=== PATIENT | female | born 1960 | race Caucasian/White ===

== ENCOUNTER 2017-08-31 04:48 | Inpatient (IN) | payer OTHER ==
[2017-08-31] MEDS: ONDANSETRON 4 MG INJ IV (07:01)
[2017-08-31] MEDS: METHYLPREDNISOLONE 125 MG INJ IV (07:01)
[2017-08-31] MEDS: SOD CHLORIDE 0.9% 1,000 ML IV ×2 (07:02→09:00)
[2017-08-31] MEDS: HYDROmorphONE 1 MG/ML SYG IV (07:02)
[2017-08-31 07:24] LABS: ADD MAN DIFF? NO
[2017-08-31 07:27] LABS: BASOPHIL # 0.1 10^3/ul (0.0-0.1); BASOPHILS % 0.8 % (0.0-2.0); EOSINOPHILS # 0.4 10^3/ul (0.0-0.5); EOSINOPHILS % 3.6 % (0.0-7.0); HEMATOCRIT 41.3 % (37.0-47.0); HEMOGLOBIN 13.7 g/dl (12.0-16.0); LYMPHOCYTES # 3.4 10^3/ul (0.8-2.9); LYMPHOCYTES % 32.1 % (15.0-51.0); MEAN CORPUSCULAR HEMOGLOBIN 29.1 pg (29.0-33.0); MEAN CORPUSCULAR HGB CONC 33.2 g/dl (32.0-37.0); MEAN CORPUSCULAR VOLUME 87.9 fl (82.0-101.0); MEAN PLATELET VOLUME 11.5 fl (7.4-10.4); MONOCYTE # 0.8 10^3/ul (0.3-0.9); MONOCYTES % 7.5 % (0.0-11.0); NEUTROPHIL # 5.9 10^3/ul (1.6-7.5); NEUTROPHILS % 55.7 % (39.0-77.0); PLATELET COUNT 270 10^3/UL (140-415); RED CELL DISTRIBUTION WIDTH 14.6 % (11.5-14.5)
[2017-08-31 07:27] LABS: WHITE BLOOD COUNT 10.6 10^3/ul (4.8-10.8)
[2017-08-31 07:29] LABS: ADD UMIC NO; UR ASCORBIC ACID NEGATIVE (NEGATIVE); UR BILIRUBIN (Dip) NEGATIVE (NEGATIVE); UR BLOOD (Dip) NEGATIVE (NEGATIVE); UR CLARITY CLEAR (CLEAR); UR COLOR STRAW (YELLOW); UR GLUCOSE (Dip) NEGATIVE (NEGATIVE); UR KETONES (Dip) NEGATIVE (NEGATIVE); UR LEUKOCYTE ESTERASE (Dip) NEGATIVE Leu/ul (NEGATIVE); UR NITRITE (Dip) NEGATIVE (NEGATIVE); UR SPECIFIC GRAVITY (Dip) 1.006 (1.003-1.030); UR TOTAL PROTEIN (Dip) NEGATIVE (NEGATIVE); UR UROBILINOGEN (Dip) NEGATIVE (NEGATIVE)
[2017-08-31 07:47] LABS: ALANINE AMINOTRANSFERASE 25 IU/L (13-69); ALBUMIN 4.3 g/dl (3.3-4.9); ALBUMIN/GLOBULIN RATIO 1.38; ALKALINE PHOSPHATASE 51 IU/L (42-121); ANION GAP 16 (8-16); ASPARTATE AMINO TRANSFERASE 25 IU/L (15-46); BILIRUBIN,INDIRECT 0.3 mg/dl (0-1.1); BILIRUBIN,TOTAL 0.3 mg/dl (0.2-1.3); BLOOD UREA NITROGEN 12 mg/dl (7-20); CALCIUM 9.2 mg/dl (8.4-10.2); CARBON DIOXIDE 28 mmol/L (21-31); CHLORIDE 105 mmol/L (97-110); CREATININE 0.64 mg/dl (0.44-1.00); GLUCOSE 107 mg/dl (70-220); POTASSIUM 3.8 mmol/L (3.5-5.1); SODIUM 145 mmol/L (135-144); TOTAL PROTEIN 7.4 g/dl (6.1-8.1)
[2017-08-31] MEDS: ASPIRIN 325 MG TAB PO (08:58)
[2017-08-31] MEDS: CEFTRIAXONE 1 GM/50 ML (PMX) 50 ML IVPB (08:58)
[2017-08-31] MEDS ORDERED: ONDANSETRON 4 MG INJ IV (09:00)
[2017-08-31] MEDS ORDERED: ACETAMINOPHEN 325 MG TAB PO ×2 (09:00→10:30)
[2017-08-31] MEDS: AZITHROMYCIN 500MG/NS (PMX) 250 ML IV (09:22)
[2017-08-31] MEDS ORDERED: NITROGLYCERIN (SL) 0.4 MG TAB SL (10:30)
[2017-08-31] MEDS ORDERED: NACL 0.9% 3 ML SYG IV (10:30)
[2017-08-31] MEDS ORDERED: METOCLOPRAMIDE 10 MG INJ IV (10:30)
[2017-08-31 11:34] LABS: CREATINE KINASE 165 IU/L (23-200)
[2017-08-31 11:46] LABS: CK INDEX 0.6; CK-MB 1.04 ng/ml (0.0-2.4)
[2017-08-31 12:18] LABS: TROPONIN-I < 0.012 ng/ml (0.000-0.120)
[2017-08-31] MEDS: OXYCODONE/ACETAMINOPHEN (5/325) TAB PO ×2 (12:24→18:33)
[2017-08-31] MEDS: traMADol 50 MG TAB PO ×2 (13:21→20:35)
[2017-08-31] MEDS: CELECOXIB 100 MG CAP PO ×2 (13:21→20:34)
[2017-08-31 17:05] LABS: CREATINE KINASE 145 IU/L (23-200)
[2017-08-31 17:18] LABS: CK INDEX 0.6
[2017-08-31 17:24] LABS: TROPONIN-I < 0.012 ng/ml (0.000-0.120)
[2017-08-31] MEDS: ATORVASTATIN 80 MG TAB PO (20:35)
[2017-09-01 05:22] LABS: ADD MAN DIFF? NO
[2017-09-01 05:37] LABS: BASOPHILS % 0.1 % (0.0-2.0); HEMATOCRIT 37.7 % (37.0-47.0); HEMOGLOBIN 12.8 g/dl (12.0-16.0); LYMPHOCYTES # 1.5 10^3/ul (0.8-2.9); MEAN CORPUSCULAR HEMOGLOBIN 29.7 pg (29.0-33.0); MEAN CORPUSCULAR VOLUME 87.5 fl (82.0-101.0); MONOCYTE # 0.5 10^3/ul (0.3-0.9); MONOCYTES % 3.1 % (0.0-11.0); NEUTROPHIL # 14.8 10^3/ul (1.6-7.5); NEUTROPHILS % 87.2 % (39.0-77.0); PLATELET COUNT 265 10^3/UL (140-415); RED BLOOD COUNT 4.31 10^6/ul (4.20-5.40); RED CELL DISTRIBUTION WIDTH 14.6 % (11.5-14.5)
[2017-09-01 05:43] LABS: CHOL/HDL RATIO 2.6 RATIO; HDL CHOLESTEROL 49 mg/dl (35-98); LDL CHOLESTEROL,CALCULATED 72 mg/dl; TRIGLYCERIDES 55 mg/dl (0-149)
[2017-09-01 05:43] LABS: CHOLESTEROL 132 mg/dl (100-200)
[2017-09-01 06:01] LABS: ALANINE AMINOTRANSFERASE 28 IU/L (13-69); ALBUMIN 3.8 g/dl (3.3-4.9); ALBUMIN/GLOBULIN RATIO 1.31; ALKALINE PHOSPHATASE 44 IU/L (42-121); ANION GAP 14 (8-16); ASPARTATE AMINO TRANSFERASE 20 IU/L (15-46); BILIRUBIN,INDIRECT 0.2 mg/dl (0-1.1); BILIRUBIN,TOTAL 0.2 mg/dl (0.2-1.3); BLOOD UREA NITROGEN 11 mg/dl (7-20); CARBON DIOXIDE 27 mmol/L (21-31); CHLORIDE 107 mmol/L (97-110); CREATININE 0.56 mg/dl (0.44-1.00); GLUCOSE 129 mg/dl (70-220); PHOSPHORUS 3.7 mg/dl (2.5-4.9); POTASSIUM 4.5 mmol/L (3.5-5.1); SODIUM 143 mmol/L (135-144); TOTAL PROTEIN 6.7 g/dl (6.1-8.1)
[2017-09-01 08:02] LABS: HEMOGLOBIN A1C 6.1 % (0-5.9)
[2017-09-01] MEDS: CELECOXIB 100 MG CAP PO ×2 (08:33→20:24)
[2017-09-01] MEDS: ASPIRIN 81 MG TAB PO (08:33)
[2017-09-01] MEDS: traMADol 50 MG TAB PO ×3 (08:34→20:24)
[2017-09-01] MEDS: AMLODIPINE 10 MG TAB PO (08:34)
[2017-09-01] MEDS: LOSARTAN 50 MG TAB PO (08:35)
[2017-09-01] MEDS: ENOXAPARIN 40 MG/0.4 ML SYG SC (08:36)
[2017-09-01] MEDS: SOD CHLORIDE 0.9% 100 ML (12:41)
[2017-09-01] MEDS: IOHEXOL 100 ML (12:41)
[2017-09-01] MEDS: OXYCODONE/ACETAMINOPHEN (5/325) TAB PO (18:46)
[2017-09-01] MEDS: ATORVASTATIN 80 MG TAB PO (20:24)
[2017-09-02] MEDS: ASPIRIN 81 MG TAB PO (08:47)
[2017-09-02] MEDS: CELECOXIB 100 MG CAP PO ×2 (08:47→21:50)
[2017-09-02] MEDS: LOSARTAN 50 MG TAB PO (08:48)
[2017-09-02] MEDS: traMADol 50 MG TAB PO ×3 (08:48→21:50)
[2017-09-02] MEDS: AMLODIPINE 10 MG TAB PO (08:48)
[2017-09-02] MEDS: ENOXAPARIN 40 MG/0.4 ML SYG SC (08:53)
[2017-09-02] MEDS: OXYCODONE/ACETAMINOPHEN (5/325) TAB PO (19:32)
[2017-09-02] MEDS: ATORVASTATIN 80 MG TAB PO (21:49)
[2017-09-02] MEDS: DEXAMETHASONE 1 MG TAB PO (23:54)
[2017-09-03] MEDS: OXYCODONE/ACETAMINOPHEN (5/325) TAB PO (04:13)
[2017-09-03] MEDS: LEVOTHYROXINE 125 MCG TAB PO (06:38)
[2017-09-03] MEDS: ASPIRIN 81 MG TAB PO (08:21)
[2017-09-03] MEDS: AMLODIPINE 10 MG TAB PO (08:22)
[2017-09-03] MEDS: CELECOXIB 100 MG CAP PO (08:22)
[2017-09-03] MEDS: traMADol 50 MG TAB PO (08:22)
[2017-09-03] MEDS: LOSARTAN 50 MG TAB PO (08:22)
[2017-09-03] MEDS: ENOXAPARIN 40 MG/0.4 ML SYG SC (08:26)
== END 2017-09-03 12:55 | disposition home or self-care (01) | DRG 69 ==
LOC: TEL 09-01 22:30 → FTE 04:48 → MS3 09:01
DX: G45.9 Transient cerebral ischemic attack, unspecified (principal); R47.1 Dysarthria and anarthria; I10 Essential (primary) hypertension; F17.210 Nicotine dependence, cigarettes, uncomplicated; E78.00 Pure hypercholesterolemia, unspecified; M51.26 Other intervertebral disc displacement, lumbar region; R73.02 Impaired glucose tolerance (oral); R73.03 Prediabetes; G89.29 Other chronic pain; D35.02 Benign neoplasm of left adrenal gland; Z85.850 Personal history of malignant neoplasm of thyroid; Z86.73 Personal history of transient ischemic attack (TIA), and cerebral infarction without residual deficits; Z86.711 Personal history of pulmonary embolism
CPT/HCPCS: 36415; 70450; 70496; 70498; 70551; 71045; 74176; 76536; 80053; 80061; 81003; 82533; 82550; 82553; 83036; 83735; 84100; 84432; 84443; 84484; 85025; 86800; 87040; 87086; 92522; 92610; 93005; 93306; 96361; 96365; 96368; 96375; 97162; 99285-25

== ENCOUNTER 2017-09-15 23:46 | Emergency (ER) | payer OTHER ==
[2017-09-16 03:07] LABS: ADD MAN DIFF? NO
[2017-09-16 03:12] LABS: WHITE BLOOD COUNT 11.7 10^3/ul (4.8-10.8)
[2017-09-16 03:12] LABS: BASOPHIL # 0.1 10^3/ul (0.0-0.1); BASOPHILS % 0.5 % (0.0-2.0); EOSINOPHILS # 0.3 10^3/ul (0.0-0.5); EOSINOPHILS % 2.2 % (0.0-7.0); HEMOGLOBIN 12.4 g/dl (12.0-16.0); LYMPHOCYTES # 3.4 10^3/ul (0.8-2.9); LYMPHOCYTES % 29.5 % (15.0-51.0); MEAN CORPUSCULAR HEMOGLOBIN 29.5 pg (29.0-33.0); MEAN CORPUSCULAR HGB CONC 33.5 g/dl (32.0-37.0); MEAN CORPUSCULAR VOLUME 87.9 fl (82.0-101.0); MEAN PLATELET VOLUME 11.8 fl (7.4-10.4); MONOCYTE # 0.9 10^3/ul (0.3-0.9); MONOCYTES % 7.7 % (0.0-11.0); NEUTROPHILS % 59.8 % (39.0-77.0); PLATELET COUNT 272 10^3/UL (140-415); RED BLOOD COUNT 4.21 10^6/ul (4.20-5.40); RED CELL DISTRIBUTION WIDTH 14.5 % (11.5-14.5)
[2017-09-16 03:20] LABS: ANION GAP 14 (8-16); BLOOD UREA NITROGEN 12 mg/dl (7-20); CARBON DIOXIDE 26 mmol/L (21-31); CHLORIDE 107 mmol/L (97-110); CREATININE 0.61 mg/dl (0.44-1.00); GLUCOSE 113 mg/dl (70-220); POTASSIUM 3.6 mmol/L (3.5-5.1); SODIUM 143 mmol/L (135-144)
[2017-09-16 03:31] LABS: TROPONIN-I < 0.010 ng/ml (0.000-0.120)
[2017-09-16] MEDS: HYDROCODONE/APAP (10/325) TAB PO (05:25)
[2017-09-16] MEDS: ONDANSETRON (ODT) 4 MG TAB ODT (05:25)
[2017-09-16 05:26] LABS: INR 0.94; PROTIME 12.7 Sec (11.9-14.9)
[2017-09-16 05:27] LABS: PARTIAL THROMBOPLASTIN TIME 30.2 Sec (25.0-35.0)
== END 2017-09-16 06:14 | disposition home or self-care (01) ==
LOC: E/R 23:46
DX: R51 Headache (principal); I10 Essential (primary) hypertension; R07.9 Chest pain, unspecified; Z87.891 Personal history of nicotine dependence; Z79.82 Long term (current) use of aspirin; Z85.850 Personal history of malignant neoplasm of thyroid
CPT/HCPCS: 70450; 71045; 80048; 84484; 85025; 85610; 85730; 93005; 99285-25

== ENCOUNTER 2017-10-16 14:17 | Emergency (ER) | payer OTHER ==
[2017-10-16] MEDS: KETOROLAC 30 MG INJ IV (14:58)
[2017-10-16 15:13] LABS: ADD MAN DIFF? NO
[2017-10-16 15:18] LABS: WHITE BLOOD COUNT 13.7 10^3/ul (4.8-10.8)
[2017-10-16 15:18] LABS: BASOPHIL # 0.1 10^3/ul (0.0-0.1); BASOPHILS % 0.4 % (0.0-2.0); EOSINOPHILS # 0.3 10^3/ul (0.0-0.5); EOSINOPHILS % 1.9 % (0.0-7.0); HEMATOCRIT 40.6 % (37.0-47.0); HEMOGLOBIN 13.6 g/dl (12.0-16.0); IMMATURE GRANS #M 0.05 10^3/ul; IMMATURE GRANS % (M) 0.4 %; LYMPHOCYTES # 3.2 10^3/ul (0.8-2.9); LYMPHOCYTES % 23.6 % (15.0-51.0); MEAN CORPUSCULAR HEMOGLOBIN 29.6 pg (29.0-33.0); MEAN CORPUSCULAR HGB CONC 33.5 g/dl (32.0-37.0); MEAN CORPUSCULAR VOLUME 88.3 fl (82.0-101.0); MEAN PLATELET VOLUME 11.4 fl (7.4-10.4); MONOCYTE # 0.8 10^3/ul (0.3-0.9); MONOCYTES % 6.1 % (0.0-11.0); NEUTROPHIL # 9.3 10^3/ul (1.6-7.5); NEUTROPHILS % 67.6 % (39.0-77.0); PLATELET COUNT 281 10^3/UL (140-415); RED CELL DISTRIBUTION WIDTH 14.6 % (11.5-14.5)
[2017-10-16 15:33] LABS: ADD UMIC NO; UR ASCORBIC ACID NEGATIVE (NEGATIVE); UR BILIRUBIN (Dip) NEGATIVE (NEGATIVE); UR BLOOD (Dip) NEGATIVE (NEGATIVE); UR CLARITY CLEAR (CLEAR); UR COLOR YELLOW (YELLOW); UR GLUCOSE (Dip) NEGATIVE (NEGATIVE); UR KETONES (Dip) NEGATIVE (NEGATIVE); UR LEUKOCYTE ESTERASE (Dip) NEGATIVE Leu/ul (NEGATIVE); UR NITRITE (Dip) NEGATIVE (NEGATIVE); UR SPECIFIC GRAVITY (Dip) 1.008 (1.003-1.030); UR TOTAL PROTEIN (Dip) NEGATIVE (NEGATIVE); UR UROBILINOGEN (Dip) NEGATIVE (NEGATIVE)
[2017-10-16 15:37] LABS: ALANINE AMINOTRANSFERASE 22 IU/L (13-69); ALBUMIN 4.3 g/dl (3.3-4.9); ALBUMIN/GLOBULIN RATIO 1.13; ALKALINE PHOSPHATASE 55 IU/L (42-121); ANION GAP 14 (8-16); ASPARTATE AMINO TRANSFERASE 26 IU/L (15-46); BILIRUBIN,INDIRECT 0.2 mg/dl (0-1.1); BILIRUBIN,TOTAL 0.2 mg/dl (0.2-1.3); BLOOD UREA NITROGEN 11 mg/dl (7-20); CALCIUM 9.3 mg/dl (8.4-10.2); CARBON DIOXIDE 28 mmol/L (21-31); CHLORIDE 105 mmol/L (97-110); CREATININE 0.63 mg/dl (0.44-1.00); GLUCOSE 98 mg/dl (70-220); LIPASE 126 U/L (23-300); POTASSIUM 4.4 mmol/L (3.5-5.1); SODIUM 143 mmol/L (135-144); TOTAL PROTEIN 8.1 g/dl (6.1-8.1)
[2017-10-16 17:23] LABS: MONOTEST Negative (NEG)
== END 2017-10-16 19:35 | disposition home or self-care (01) ==
LOC: FTE 14:17
DX: M79.1 Myalgia (principal); R05 Cough; I10 Essential (primary) hypertension; Z79.82 Long term (current) use of aspirin
CPT/HCPCS: 36415; 71045; 80053; 81003; 83690; 85025; 86308; 87400; 87880; 96374; 99284-25

== ENCOUNTER 2018-01-03 21:20 | Emergency (ER) | payer OTHER ==
[2018-01-03 22:01] LABS: ADD MAN DIFF? NO
[2018-01-03 22:03] LABS: BASOPHILS % 0.5 % (0.0-2.0); EOSINOPHILS # 0.5 10^3/ul (0.0-0.5); EOSINOPHILS % 5.3 % (0.0-7.0); HEMATOCRIT 39.6 % (37.0-47.0); HEMOGLOBIN 13.2 g/dl (12.0-16.0); LYMPHOCYTES # 2.3 10^3/ul (0.8-2.9); LYMPHOCYTES % 26.9 % (15.0-51.0); MEAN CORPUSCULAR HEMOGLOBIN 29.1 pg (29.0-33.0); MEAN CORPUSCULAR HGB CONC 33.3 g/dl (32.0-37.0); MEAN CORPUSCULAR VOLUME 87.2 fl (82.0-101.0); MEAN PLATELET VOLUME 11.6 fl (7.4-10.4); MONOCYTE # 0.5 10^3/ul (0.3-0.9); MONOCYTES % 6.1 % (0.0-11.0); NEUTROPHIL # 5.3 10^3/ul (1.6-7.5); PLATELET COUNT 241 10^3/UL (140-415); RED BLOOD COUNT 4.54 10^6/ul (4.20-5.40); RED CELL DISTRIBUTION WIDTH 14.3 % (11.5-14.5)
[2018-01-03 22:03] LABS: WHITE BLOOD COUNT 8.7 10^3/ul (4.8-10.8)
[2018-01-03 22:20] LABS: ANION GAP 7 (5-13); BLOOD UREA NITROGEN 12 mg/dl (7-20); CALCIUM 9.1 mg/dl (8.4-10.2); CARBON DIOXIDE 29 mmol/L (21-31); CHLORIDE 103 mmol/L (97-110); CREATININE 0.69 mg/dl (0.44-1.00); Estimated GFR > 60 mL/min (>60); GLUCOSE 101 mg/dl (70-220); POTASSIUM 3.5 mmol/L (3.5-5.1); SODIUM 139 mmol/L (135-144)
[2018-01-03 22:22] LABS: INR 0.94; PROTIME 12.7 Sec (11.9-14.9)
[2018-01-03] MEDS: KETOROLAC 15 MG INJ IV (22:26)
[2018-01-03] MEDS: DIAZEPAM 5 MG/ML SYG IV (22:26)
[2018-01-03 22:32] LABS: B-TYPE NATRIURETIC PEPTIDE 65 PG/ML (0-125); TROPONIN-I < 0.012 ng/ml (0.000-0.120)
[2018-01-03 23:31] LABS: ADD UMIC NO; UR ASCORBIC ACID NEGATIVE (NEGATIVE); UR BILIRUBIN (Dip) NEGATIVE (NEGATIVE); UR BLOOD (Dip) NEGATIVE (NEGATIVE); UR CLARITY CLEAR (CLEAR); UR COLOR STRAW (YELLOW); UR GLUCOSE (Dip) NEGATIVE (NEGATIVE); UR KETONES (Dip) NEGATIVE (NEGATIVE); UR LEUKOCYTE ESTERASE (Dip) NEGATIVE Leu/ul (NEGATIVE); UR NITRITE (Dip) NEGATIVE (NEGATIVE); UR SPECIFIC GRAVITY (Dip) 1.006 (1.003-1.030); UR TOTAL PROTEIN (Dip) NEGATIVE (NEGATIVE); UR UROBILINOGEN (Dip) NEGATIVE (NEGATIVE)
[2018-01-03 23:44] LABS: AMPHETAMINE/METHAMPHETAMINE Negative (NEGATIVE); BARBITURATES Negative (NEGATIVE); BENZODIAZEPINES Negative (NEGATIVE); CANNABINOIDS Negative (NEGATIVE); COCAINE Negative (NEGATIVE); OPIATES Negative (NEGATIVE)
[2018-01-04 01:59] LABS: D-DIMER 644.79 ng/ml (<460)
[2018-01-04] MEDS: SOD CHLORIDE 0.9% 100 ML (03:06)
[2018-01-04] MEDS: IOHEXOL 100 ML (03:06)
[2018-01-04] MEDS: IOHEXOL 350MG/ML 50 ML BTL (03:06)
== END 2018-01-04 05:48 | disposition home or self-care (01) ==
LOC: E/R 21:20
DX: I10 Essential (primary) hypertension (principal); R40.2142 Coma scale, eyes open, spontaneous, at arrival to emergency department; R40.2362 Coma scale, best motor response, obeys commands, at arrival to emergency department; R40.2252 Coma scale, best verbal response, oriented, at arrival to emergency department; R51 Headache; R07.9 Chest pain, unspecified; M54.6 Pain in thoracic spine; R79.1 Abnormal coagulation profile; F17.210 Nicotine dependence, cigarettes, uncomplicated; Z79.82 Long term (current) use of aspirin
CPT/HCPCS: 36415; 71045; 71275; 80048; 80307; 81003; 83880; 84484; 85025; 85378; 85610; 93005; 96374; 96375; 99285-25